=== PATIENT | female | born 1940 | race Caucasian/White ===

== ENCOUNTER 2022-05-20 10:47 | Emergency (ER) | payer MEDICARE ==
[2022-05-20] MEDS ORDERED: BENZONATATE100 MG PO (13:02)
== END 2022-05-20 13:27 | disposition home or self-care (01) ==
LOC: ER1 10:47
DX: R05.9 Cough, unspecified (principal); R50.9 Fever, unspecified; E11.9 Type 2 diabetes mellitus without complications; I10 Essential (primary) hypertension; Z79.4 Long term (current) use of insulin; Z88.8 Allergy status to other drugs, medicaments and biological substances; Z20.822 Contact with and (suspected) exposure to COVID-19
CPT/HCPCS: 0240U; 71046; 99284